=== PATIENT | female | born 1950 | race Caucasian/White ===

== ENCOUNTER → 2018-07-27 10:41 | Outpatient (CLI) | payer MEDICARE, OTHER, SELFPAY ==
--- NOTE | 2018-07-27 10:45 | MRI_ITS ---
STUDY: MRI LUMBAR SPINE WITHOUT CONTRAST REASON FOR EXAM: Female, 67 years old. Low back and right leg pain. TECHNIQUE: Standardized fat and water weighted pulse sequences were obtained in the sagittal and axial planes. COMPARISON: None FINDINGS: There is a 1.7 cm lesion in the L1 vertebral body, heterogeneous on T1 and hyperintense on T2-weighted imaging. This is well-defined but not typical for intravertebral hemangioma. This may represent a nonfat-containing hemangioma. T12-L1: Normal endplates. Normal disc height, hydration and morphology. Normal bilateral facet joints. Normal central canal and bilateral lateral recesses. Normal bilateral intervertebral neural foramina. Normal lumbar lordosis. There is no substantial scoliosis. Normal conus medullaris that terminates at the T12-L1 level. L1-2: Normal endplates. Disc dehydration. There is 3 mm degenerative retrolisthesis. There is mild facet hypertrophy. Normal central canal and bilateral lateral recesses. There is mild foraminal encroachment due to spurring and facet hypertrophy. L2-3: Normal endplates. Disc dehydration. There is a mild, broad-based annular disc bulge. No canal stenosis. The patient is status post laminectomy. There is severe bilateral foraminal stenosis due to disc bulge and facet hypertrophy. L3-4: Normal endplates. Disc dehydration and mild disc space narrowing. There is a mild, noncompressive annular disc bulge. The patient is status post laminectomy. There is moderate foraminal encroachment due to disc bulge and facet hypertrophy. L4-5: Normal endplates. There is marked disc space narrowing. There is 4 mm anterolisthesis. Patient is status post laminectomy with fusion hardware in place. No disc protrusion or canal stenosis. Foramina are patent. L5-S1: Normal endplates. Disc dehydration. Patient is status post laminectomy. No disc protrusion or canal stenosis. Foramina are patent. Normal visualized sacral ala. Normal visualized paraspinous soft tissue structures. MRI/Spine Lumbar (Routine) IMPRESSION: 1. Heterogeneous lesion in the L1 vertebral body likely represents a nonfat-containing hemangioma. Consider 6 month follow-up. If there is known history of primary malignancy, consider 3 month follow-up. 2. Mild listhesis at L1-2 and L4-5. 3. Foraminal stenosis at L2-3. 4. Postsurgical changes from L2 through L5. 5. Degenerative changes are detailed above. Electronically Signed: Maryanne Bravo MD at 22:41 EST Tel , Service support ,
== END ==
PROVIDERS: Family Provider Nurse Practitioner Family; PCP Nurse Practitioner Family; Referring Provider Anesthesiology Pain Medicine; Visit Provider Anesthesiology Pain Medicine
DX: M54.5 Low back pain (principal); M79.604 Pain in right leg
CPT/HCPCS: 72148

== ENCOUNTER → 2018-11-14 13:44 | Outpatient (CLI) | payer MEDICARE, OTHER, SELFPAY ==
--- NOTE | 2018-11-14 14:04 | RAD_ITS ---
STUDY: X-RAY - LUMBAR SPINE REASON FOR EXAM: Female, 68 years old. Chronic low back pain. History of L4-5 fusion. TECHNIQUE: 2 view(s) of the lumbar spine were obtained. COMPARISON: Lumbar spine MRI dated July 27, 2018. FINDINGS: There is generalized osteopenia. Normal lumbar lordosis. There is no substantial scoliosis. There is 6 mm of anterolisthesis of L4 on L5. There are laminectomies at L4-5 with L4-5 posterior fusion with grafting. No complications are noted. There is mild intervertebral disc space narrowing diffusely without significant osteophyte formation. There is diffuse facet sclerosis. The soft tissue structures are unremarkable. RAD/Lumbar Spine 2 or 3 Views IMPRESSION: Osteopenia with postsurgical changes at L4-5. Mild lumbar spondylosis. Electronically Signed: Macario Reilly MD at 14:46 EDT , Service support ,
[2018-11-14 15:30] LABS: Amphetamine Urine VISTA POSITIVE (<1000 ng/mL); Barbiturate Urine VISTA NEGATIVE (< 200 ng/mL); Benzodiazepine Urine VISTA NEGATIVE (< 200 ng/mL); Cocaine Urine VISTA NEGATIVE (< 300 ng/mL); Ecstacy Urine VISTA NEGATIVE (< 500 ng/mL); Methadone Urine VISTA NEGATIVE (< 300 ng/mL); PCP Urine VISTA NEGATIVE (< 25 ng/mL); THC Urine VISTA NEGATIVE (< 50 ng/mL); Vista UDS pH Range 5
== END ==
PROVIDERS: Family Provider Nurse Practitioner Family; PCP Nurse Practitioner Family; Referring Provider Anesthesiology Pain Medicine; Visit Provider Anesthesiology Pain Medicine
DX: M54.9 Dorsalgia, unspecified (principal); F11.20 Opioid dependence, uncomplicated
CPT/HCPCS: 72100; 80307

== ENCOUNTER → 2018-12-18 | Outpatient (CLI) | payer MEDICARE, OTHER, SELFPAY ==
[2015-10-12 08:50] VITALS: BMI 27.8
--- NOTE | 2018-12-18 14:04 | RAD_ITS ---
STUDY: X-RAY - PELVIS AND RIGHT HIP REASON FOR EXAM: Female, 68 years old. Right hip pain. No known injury. TECHNIQUE: 3 views of the pelvis and hip. COMPARISON: Lumbar spine November 14, 2018. FINDINGS: There is a non-specific bowel gas pattern. Normal visualized soft tissue structures. Normal bilateral iliac wings, sacroiliac joints and visualized sacrum. Normal bilateral superior and inferior pubic rami. Normal pubic symphysis. Normal bilateral ischial tuberosities. Normal visualized femoral head. Normal acetabulum. Normal hip joint. Posterior lumbar fusion L4-L5. Bilateral rods and pedicle screws. RAD/HIP, UNI W/ Pelvis 2-3 Views IMPRESSION: No acute findings in the pelvis or hips. Postoperative changes of posterior lumbar fusion. Electronically Signed: Meliton Steiner MD at 3:06 EDT , Service support ,
== END | disposition home or self-care (01) ==
LOC: RAD 14:03
PROVIDERS: Family Provider Nurse Practitioner Family; PCP Nurse Practitioner Family; Referring Provider Anesthesiology Pain Medicine; Visit Provider Anesthesiology Pain Medicine
DX: M25.551 Pain in right hip (principal)
CPT/HCPCS: 73502

== ENCOUNTER 2021-08-24 16:01 | Outpatient (CLI) | payer MEDICARE, SELFPAY ==
--- NOTE | 2021-08-24 | CYSPIN_PTH ---
PATIENT: RAMAN PALMER LOC: [facility] U#:[id number] AGE/SX: 70/F ROOM: RE08/24/[address]: Dr. Leeanna Sandoval MD : 1950 BED: DIS: 08/24/2021 SPEC #: [id number] RECD: 08/25/21 08:48 STATUS: CALLIE REMitch #: [id number] NE: 08/24/21 00:[address]: Leeanna Sandoval DEPT: CYTOLOGY RECD BY: Judith Allen ENTERED: 08/25/21 08:49 SP TYPE: CYSPIN FL OTHR DR: Maria Eugenia Vazquez, FIELD LABORATORY OPERATOR-C Tissues: Urine Procedures: Pap Stain (control) Special Stain Group II Cytospin Fluid HEADER OPERATION: Not noted PRE-OP DIAGNOSIS: Gross hematuria TISSUE SUBMITTED: Urine for cytology DIAGNOSIS CYTOLOGY Urine for cytology (cytospin): Negative for malignant cells. Acute inflammation. See comment. SJ:iker 08/25/2021 COMMENT Degenerated urothelial cells and numerous bacteria are also noted. Clinical correlation and appropriate follow up are necessary. Case has been reviewed in consultation with Dr. Walsh who concurs with the above diagnosis. IDC:AM CYTOLOGY STUDY Slides are reviewed. CYTOLOGY GROSS Received is 20 ml of brownish-yellow, cloudy fluid with particles labeled with the patient's name and and designated per the requisition as urine. Submitted for cytology preparation. / iker 08/24/2021 TC:2 CPT: 26648
[2021-08-24 17:44] LABS: Hematocrit 36.3 % (37-47); Mean Corp Hgb Conc 33.1 g/dL (32-36); Mean Corpuscular Hgb 29.6 pg (27.0-32.0); Mean Corpuscular Volume 89.4 fL (81-99); Mean Platelet Vol. 8.9 fl (6.2-12.0); Platelet Count 267 K/mm3 (150-450); RBC Distribution Width CV 12.4 % (11.6-14.6); RBC Distribution Width SD 40.7 fl (35.1-43.9); Red Blood Count 4.06 M/mm3 (4.2-5.4); White Blood Count 5.4 K/mm3 (4.4-11.0)
[2021-08-24 18:08] LABS: Cytology, Body Fluid / CSF SEE PATHOLOGY REPORT
[2021-08-24 18:12] LABS: Anion Gap 6 (5-15); BUN 27 mg/dL (7-18); BUN/Creat Ratio 32.2 RATIO (10-20); Calcium,Total 8.9 mg/dL (8.5-10.1); Chloride 106 mmol/L (98-107); Creatinine, Serum 0.84 mg/dL (0.55-1.02); EST Glomerular Filtration Rate 71 mL/min (>60); Est Glom Filt Rate - Afr Amer 86 mL/min (>60); Glucose 166 mg/dL (74-106); Potassium 4.1 mmol/L (3.5-5.1); Sodium Level 139 mmol/L (136-145)
== END 2021-08-24 23:59 | disposition short-term general hospital (02) ==
PROVIDERS: PCP Nurse Practitioner Family; Referring Provider Urology; Visit Provider Urology
DX: R31.0 Gross hematuria (principal)
CPT/HCPCS: 36415; 80048; 85027; 88108; 88313

== ENCOUNTER 2021-08-30 16:21 | Outpatient (CLI) | payer MEDICARE, SELFPAY ==
--- NOTE | 2021-08-30 16:29 | CT_ITS ---
STUDY: CT ABDOMEN AND PELVIS WITH AND WITHOUT CONTRAST REASON FOR EXAM: Female, 70 years old. Gross hematuria. RADIATION DOSAGE (If Supplied By Facility): CTDIvol = ( 11.66 ) mGy, DLP = ( 1528.46 ) mGycm TECHNIQUE: Transaxial images were obtained from the dome of the diaphragm to the symphysis pubis without oral contrast. 100 mL Isovue-300 intravenous contrast was administered. Sagittal and coronal images were reconstructed. Individualized dose optimization techniques were used for this CT. COMPARISON: None. FINDINGS: The visualized lung bases are unremarkable. The visualized portions of the heart are within normal limits. Normal liver. Normal gallbladder and extrahepatic biliary system. Normal spleen. Normal pancreas. Normal bilateral adrenal glands. Normal right kidney. Normal left kidney. Normal visualized stomach. Normal small intestine. Sigmoid diverticulosis. The appendix is visualized and appears normal. There is atherosclerotic calcification of the abdominal aorta, without a demonstrated aneurysm. Normal inferior vena cava. Normal retroperitoneum. No intra-abdominal free air. Fairly uniform smooth circumferential bladder wall thickening measuring up to 20 mm in transverse dimension. Uterus absent compatible with hysterectomy. No adnexal masses seen. Normal abdominal wall. Posterior lumbar fusion L2-L3 and L4-L5 with bilateral rods and pedicle screws. Surgical hardware appears intact. CT/CT Abd/Pelvis W/WO Contrast IMPRESSION: Circumferential bladder wall thickening. Considerations include cystitis or malignancy. Consider urology consult. Sigmoid diverticulosis. Electronically Signed: Meliton Steiner MD at 3:05 EST , Service support ,
== END 2021-08-30 23:59 | disposition short-term general hospital (02) ==
LOC: CT 16:27
PROVIDERS: PCP Nurse Practitioner Family; Referring Provider Urology; Visit Provider Urology
DX: R31.0 Gross hematuria (principal)
CPT/HCPCS: 74178; Q9967

== ENCOUNTER 2021-09-10 11:28 | Outpatient (CLI) | payer MEDICARE, OTHER, SELFPAY ==
[2021-09-10 14:55] LABS: Absolute Lymphocyte Count 1.01 X10^3/uL (0.83-4.51); Absolute Neutrophil Count 9.9 X10^3/uL (2.0-7.7); Basophil# 0.03 X10^3/uL; Basophil% 0.2 % (0-1); Eosinophil# 0.04 X10^3/uL; Eosinophils% 0.3 % (0-5); Hematocrit 33.1 % (37-47); Hemoglobin 10.9 g/dL (12.0-15.0); Lymphocyte # 1.01 X10^3/ul (0.83-4.51); Lymphocyte % 8.2 % (19-41); Mean Corp Hgb Conc 32.9 g/dL (32-36); Mean Corpuscular Hgb 29.7 pg (27.0-32.0); Mean Corpuscular Volume 90.2 fL (81-99); Mean Platelet Vol. 9.5 fl (6.2-12.0); Monocyte% 10.5 % (0-10); NRBC Flagged by Analyzer 0 % (0-5); Neutrophil # 9.88 X10^3/uL (2.7-7.7); Neutrophil % 80.2 % (47-70); Platelet Count 290 K/mm3 (150-450); RBC Distribution Width CV 12.5 % (11.6-14.6); RBC Distribution Width SD 41.2 fl (35.1-43.9); Red Blood Count 3.67 M/mm3 (4.2-5.4); White Blood Count 12.3 K/mm3 (4.4-11.0)
[2021-09-10 15:16] LABS: Anion Gap 7 (5-15); BUN 15 mg/dL (7-18); BUN/Creat Ratio 12.3 RATIO (10-20); Calcium,Total 8.4 mg/dL (8.5-10.1); Chloride 100 mmol/L (98-107); Creatinine, Serum 1.22 mg/dL (0.55-1.02); EST Glomerular Filtration Rate 46 mL/min (>60); Est Glom Filt Rate - Afr Amer 56 mL/min (>60); Glucose 414 mg/dL (74-106); Potassium 4.2 mmol/L (3.5-5.1); Sodium Level 132 mmol/L (136-145)
== END 2021-09-10 23:59 | disposition short-term general hospital (02) ==
LOC: MTLAB 11:31
PROVIDERS: PCP Family Medicine; Referring Provider Urology; Visit Provider Urology
DX: N39.0 Urinary tract infection, site not specified (principal)
CPT/HCPCS: 36415; 80048; 85025

== ENCOUNTER 2021-09-14 13:57 | Day surgery (SDC) | payer MEDICARE, OTHER, SELFPAY ==
[2021-09-14] VITALS (7 sets, daily range): BP systolic 106–148; BP diastolic 64–81; PULSE 83–108; RESP 16–18; TEMP 36.6–37.1; O2SAT 97–100; BMI 25.2
[2021-09-14] MEDS: Lactated Ringers 1,000 ML 15 ML IV (14:52)
--- NOTE | 2021-09-14 15:31 | HP.PCM_ITS ---
HPI - General HPI Narrative RAMAN PALMER, is a 70 F who presents with gross hematuria and recurrent urinary tract infections with severe incontinence for evaluation with cystoscopy under anesthesia. Informed consent was obtained. FORMERLY [facility] Medical History (Updated 09/14/21 @ 15:[address] Leeanna Sandoval MD) Arthritis COPD (chronic obstructive pulmonary disease) CPAP (continuous positive airway pressure) dependence Depression Easy bruising Gross hematuria Hepatitis History of diverticulitis History of stress test Hypertension Indwelling urethral catheter present JULIO CESAR (obstructive sleep apnea) Shortness of breath on exertion Smoker Urinary tract bacterial infections Wears dentures Wears glasses Home Medications Vitamin B12 1 tab PO/SL DAILY 10/12/15 [History Last Taken Unknown] Allergy/AdvReac Type Severity Reaction Status Date / Time levofloxacin Allergy Other Verified 09/13/21 11:20 Surgical History History of back surgery History of bladder surgery History of History of colonoscopy History of tonsillectomy Social History Smoking Status: Current every day smoker tobacco type: cigarettes ROS Constitutional Constitutional: Reports fatigue; Denies anorexia, body ache(s), frequent falls or headache(s) Eyes Eyes: Reports systems reviewed and no addt'l complaints, except as documented ENT HEENT: Reports systems reviewed and no addt'l complaints, except as documented Cardiovascular Cardiovascular: Reports abdominal pain; Denies chest pain, dyspnea, leg edema, lightheadedness, nausea or vomiting Respiratory/Chest Respiratory/Chest: Denies cough or dyspnea Gastrointestinal Gastrointestinal: Reports abdominal pain; Denies anorexia, nausea or vomiting Genitourinary Genitourinary: Reports dysuria, hematuria, urinary frequency, urinary incontinence and urinary urgency Musculoskeletal Musculoskeletal: Reports systems reviewed and no addt'l complaints, except as documented Integumentary Integumentary: Reports systems reviewed and no addt'l complaints, except as doc umented Neurologic Neurologic: Reports systems reviewed and no addt'l complaints, except as documented Psychiatric Psychiatric: Reports systems reviewed and no addt'l complaints, except as documented Endocrine Endocrinology: Reports systems reviewed and no addt'l complaints, except as documented Hematologic/Lymphatic Hematologic/Lymphatic: Reports systems reviewed and no addt'l complaints, except as documented Vital Signs Vital Signs Vital Signs: 09/14/21 14:43 09/14/21 14:46 Temperature 98.4 F Temperature Source Temporal Pulse Rate 87 Respiratory Rate 18 Respiratory Pattern Normal Blood Pressure 132/75 H Blood Pressure Mean 94 Blood Pressure Source Monitor Blood Pressure Position Semi-Fowlers Blood Pressure Location Left Arm Pulse Ox 97 Oxygen Delivery Method Room Air Weight Weight: 64.501 kg Body Mass Index (BMI) 25.2 Physical Exam Const alert, oriented x3 and no apparent distress General Appearance: cooperative and comfortable Orientation / Consciousness: awake, oriented to person, oriented to place and oriented to time HEENT normocephalic, head/scalp atraumatic, hearing grossly normal bilaterally, external ears normal and external nose normal Head and Scalp: normal to inspection Eyes no scleral icterus General Eye: normal appearance of both eyes Neck supple General: trachea midline Lymph Lymphatic: no lymphedema noted Chest inspection of chest normal Chest: symmetrical chest wall rise Resp normal respiratory effort, normal air movement, no retractions and no use of accessory muscles Effort and Inspection: able to speak in complete sentences Cardio regular rate and regular rhythm GI soft to palpation, non-tender and non-distended no CVA tenderness and external exam normal Bladder / Kidney Exam: catheter in place Back/Spine no CVA tenderness Extremity normal to inspection Skin no rashes or lesions noted, no wounds, skin turgor normal, no jaundice, no petechiae and no mottling Neuro oriented x3, CN's II-XII intact bilaterally and moves all extremities Results Lab / Micro Data Micro: Microbiology 09/14/21 14:21 Interface Orders SARS-CoV-2 Antigen (Rapid) - Final Assessment & Plan Assessment/Plan (1) Gross hematuria: (2) Urinary tract bacterial infections: PLAN: cystoscopy under anesthesia
--- NOTE | 2021-09-14 15:41 | PCM.OPRPT ---
Problems Associated Problem List Diagnoses (1) Urinary tract bacterial infections: (2) Gross hematuria: Report of Operation Date of Procedure: 09/14/21 Pre-Operative Diagnosis: Gross hematuria and urinary tract infections Post-Operative Diagnosis: Same, bladder mass Surgery/Procedure Performed:: Cystourethroscopy, pelvic exam under anesthesia Surgeon: Leeanna Sandoval Type of Anesthesia: MAC Description of Procedure: The patient is a 70-year-old female with a longstanding smoking history. She presented to the office with hematuria and urinary tract infections. I had difficulty in clearing her infection, and when I placed a straight cath to empty her bladder, a significant amount of purulent bloody sediment was drained. At this time I decided to leave the catheter for drainage and management of her infection. She now presents for further evaluation under anesthesia as her urine has cleared. The patient was taken to the operating room and placed on the operating room table. Anesthesia monitored the head, neck, airway, IV access and vital signs throughout the case. Once anesthesia was appropriately administered the patient was placed into dorsal lithotomy position. Her catheter was removed with deflation of the balloon. She was prepped and draped in usual sterile fashion. Pelvic examination there is no palpable mesh, there is no hard mass palpable, but her bladder does feel thick and edematous. Using a 12 degree lens the cystoscope was used to thoroughly evaluate the urethra revealing no evidence of abnormality including foreign body. Once in the urinary bladder a 70 degree lens was used for thorough evaluation of her bladder mucosa. The trigone was about the only normal area of bladder mucosa visualized. The posterior bladder wall, dome and lateral bladder borges were all thick, distorted and some degree of edema present secondary to the Leija balloon. There was diffuse oozing with no specific site identifiable as a source of the bleeding. There is difficulty in identifying the ureteral orifices, the left one was seen without evidence of obstruction present. Was unable to definitively identify the right ureteral orifice. At this time the patient's bladder was emptied and the case was terminated. She was awakened and taken the recovery room in good condition. There were no complications during this procedure. Grafts/Implants Used: None Complications None Admit VTE Documentation VTE Present on Admission: Yes VTE Mechan Device Prophylaxis: SCD's VTE Pharm Prophylaxis ordered?: No Reason prophylaxis not ordered:: Treatment Not Indicated
[2021-09-14] MEDS: Cefazolin 2 GM in 0.9% Normal Saline 100 ML IV (15:44)
--- NOTE | 2021-09-14 16:33 | PCM.DC ---
Discharge Instructions Diet Discharge Diet: No restrictions Activity Discharge Activity: Return to Normal Activity Dressing / Incision Call your doctor if you observe: Fever of 101 or Higher, Inability to urinate and Inability to have a bowel movement Follow Up Care Please Follow Up With: Leeanna Sandoval MD When: Call the office for instructions. Test Results: Test results from this visit will be discussed in further detail at your follow-up appointment, if applicable. Discharge Plan Admission Attending Provider: Leeanna Sandoval Primary Care Provider: Chani Rivera Discharge Orders/Prescriptions Prescriptions: Continued Vitamin B12 1 tab PO/SL DAILY RF: 0 Referrals / Follow Up: Chani Rivera DO [Primary Care Provider] - Disposition Disposition (needs filled in before D/C Order can be placed): Home, Self Care
[2021-09-14 16:46] LABS: Bedside Glucose 166 mg/dL (70-110)
== END 2021-09-14 23:59 | disposition home or self-care (01) ==
LOC: SDC 14:00 → AC 14:01
PROVIDERS: PCP Family Medicine; Referring Provider Urology; Visit Provider Urology
PROC: 0TJB8ZZ Inspection of Bladder, Via Natural or Artificial Opening Endoscopic (ICD-10-PCS; CPT 52000; principal; 2021-09-14 15:40)
DX: N39.0 Urinary tract infection, site not specified (principal); J44.9 Chronic obstructive pulmonary disease, unspecified; R31.0 Gross hematuria; F17.210 Nicotine dependence, cigarettes, uncomplicated
CPT/HCPCS: 52000; 00910; 82962; 87426; J7120